=== PATIENT | male | born 1960 | race Caucasian/White ===

== ENCOUNTER 2018-12-03 19:19 | Inpatient (IN) | payer OTHER ==
[~2018-12-03] VITALS: Ht 175.3 cm; Wt 109.8 kg
--- NOTE | ~2018-12-03 | H ---
[facility] [place] [address] [place] [address] HISTORY AND PHYSICAL Name: GREG WHITING Room #: 360-P ADM IN M.R.#: [id number] Admission: 12/03/18 ������������������ Attend Phys: Himanshu Bonilla MD Discharge: ������������������ Date of : 60 Report #: [id number] THIS REPORT FOR: //name// CC: John Bonilla DATE OF SERVICE: 12/03/2018 ATTENDING PHYSICIAN: Dr. Himanshu Bonilla. PRIMARY CARE PHYSICIAN: None. CHIEF COMPLAINT: Right eye vision loss. HISTORY OF PRESENT ILLNESS: The patient is a 58-year-old male who was watching TV around 1:00 a.m. this morning when he suddenly could not see out of his right eye in the peripheral field. He said everything he looked at, he could only see half of everything. This persisted for a while, where there was a blue spot in the middle of his vision where there was no vision. He did not ever have total loss of vision. He ended up going to bed and woke up around 11:30 in the morning and the blue spot was still there. Eventually, this has turned into a general haziness or "kaleidoscope effect" in the right eye peripheral vision. He has never had any symptoms like this before. Denies any associated headache, dizziness or eye pain. Denies any weakness, numbness or tingling in any extremities. He is a diabetic and has hypertension, but he has been off of his medications for at least 6 months since his nurse practitioner, he was seeing, left the practice. He has not gotten a new provider yet. He was initially seen at [facility] for evaluation and CT showed a subacute infarct, so he was sent here for further neurologic evaluation. He is currently resting comfortably, in no acute distress. He continues to have some haziness of the right eye peripheral field. PAST MEDICAL HISTORY: Depression, hypertension, diabetes. PAST SURGICAL HISTORY: Sinus surgery with benign tumor removal. ALLERGIES: None. HOME MEDICATIONS: None in the last 6 months. He is supposed to be taking atenolol, Norvasc and Zestril, but he does not know the doses. PAST MEDICAL HISTORY: The patient smokes 1-1/2 to 2 packs of cigarettes per day. He has been smoking for at least 40 years. Denies any alcohol or drug use. He lives alone. FAMILY HISTORY: His father had multiple TIAs as well as hypertension, COPD, [facility] [address] [place] [address] HISTORY AND PHYSICAL Name: GREG WHITING Room #: 360-P [facility] IN [facility].#: [id number] Admission: 12/03/18 ������������������ Attend Phys: Himanshu Bonilla MD Discharge: ������������������ Date of : 60 Report #: [id number] carotid disease and prostate cancer. His mother had hypertension and peripheral vascular disease. He thinks she had to have a stent in her leg. Both his grandparents had strokes as well and he also has an uncle with heart disease at a young age. REVIEW OF SYSTEMS: Twelve-point review of systems was reviewed with the patient, otherwise negative unless stated in the HPI. PHYSICAL EXAMINATION: GENERAL: The patient is an alert male in no acute distress. VITAL SIGNS: Temperature was 36.8, heart rate 82, respirations 20, blood pressure /87, oxygen 95% on room air. HEENT: PERRLA. Sclerae nonicteric. Oral mucosa is pink and moist. NECK: Supple, no JVD noted. CARDIAC: Normal S1, S2. No murmurs, rubs or gallops. RESPIRATORY: Breath sounds are clear bilaterally. No wheezing or rhonchi. Breathing is nonlabored. His breath smells like cigarettes. ABDOMEN: Round, soft, nontender, nondistended with positive bowel sounds. VASCULAR: No peripheral edema noted. Pedal pulses are 2+. No calf tenderness. NEUROLOGIC: The patient is alert and oriented x 3. Speech is clear. No facial droop or asymmetry. EOMs are intact bilaterally. He does have decreased vision in the right eye peripherally with vision testing, but he is able to tell me how many fingers I am holding up when he covers the right eye. Muscle strength is 5/5 in all 4 extremities. Sensation is intact in all 4 extremities. SKIN: Intact. No rashes or lesions. LABORATORY DATA AND DIAGNOSTICS: Blood work done at [place] showed a WBC of 10.07, hemoglobin 15.6, platelets 348. Sodium 140, potassium 4.4, BUN 19, creatinine 1.12, glucose is 99, magnesium 2.2. LFTs are within normal limits. CK 57. CRP negative. Troponin is 0.02. Alcohol level negative. BNP 81. INR 0.9. CT of the head showed a left parietal lobe infarct, which is subacute. There are also chronic right thalamic and right frontal infarcts. EKG showed a sinus rhythm with an old inferior infarct. ASSESSMENT AND PLAN: 1. Right eye vision loss. CT is showing a subacute cerebrovascular accident as well as old infarcts. The patient was not aware of any prior strokes. He does have multiple vascular risk factors. We will further evaluate with an MRI and MRA of the head in the morning. Start aspirin daily. Neurology is consulted. Check ultrasound of carotids and echocardiogram. 2. Hypertension. The patient has been off his blood pressure medications for about 6 months. We will clarify those medications, but hold off on starting them to allow for permissive hypertension in the setting of a new stroke. Blood pressure currently is stable. 3. Diabetes type 2. Check hemoglobin A1c. He is not on any current medication. We will add sliding scale insulin with Accu-Cheks. [facility] [place] [address] HISTORY AND PHYSICAL Name: GREG WHITING Room #: 360-P ADM IN .R.#: [id number] Admission: 12/03/18 ������������������ Attend Phys: Himanshu Bonilla MD Discharge: ������������������ Date of : 60 Report #: [id number] 4. Tobacco abuse. The patient has been advised to quit. Denies any underlying lung disease. He does request a nicotine patch. 5. Old cerebrovascular accident per CT. The patient was unaware of prior strokes. We will add aspirin daily. 6. Deep venous thrombosis prophylaxis, place sequential compression devices. We will continue to follow the patient closely throughout the hospitalization and make changes based on clinical status. ��������������������������������������������� ���������������������������������������� By: ��������������������������������������������� [id number] MAGNOLIA Crain /nt
[2018-12-03] MEDS ORDERED: ZYRTEC10 M5 PO (21:43)
[2018-12-03 21:44] VITALS: BP 167/87
[2018-12-04 00:04] VITALS: BP 144/76
[2018-12-04 05:07] VITALS: BP 128/85
--- NOTE | 2018-12-04 05:32 | NUR ---
PT ARRIVED FROM [facility] DIRECT ADMIT. ARRIVED ON CART VIA EMS. PLACED IN ROOM 360. ADMISSION ASSESSMENTS COMPLETE. NIH COMPLETED. PT REPORTING ABDNORMAL VISION TO HIS RIGHT EYE, LATERALLY. HE STATES THAT WHEN HE LOOKS AT THE TELEVISION, THE FAR RIGHT IS DISTORTED AND JUST WEIRD. NO OTHER SX NOTED OR REPORTED. PT GAIT STEADY.
[2018-12-04 07:23] VITALS: BP 138/89
[2018-12-04 08:45] LABS: FOLIC ACID 13.9 ng/mL (8.6-58.9)
[2018-12-04 12:12] VITALS: BP 158/81
[2018-12-04] MEDS ORDERED: NORVASC5 MG PO (13:58)
[2018-12-04] MEDS ORDERED: TENORMIN50 MG PO (13:59)
--- NOTE | 2018-12-04 15:36 | 2DMMODE ---
[facility] [place] [place] [address] 2 D/M-MODE ECHOCARDIOGRAM Name: GREG WHITING Room #: 360-P ADM IN M.R.#: [id number] ������������� Admission: 12/03/18 ������������� Attend Phys: Himanshu Bonilla MD Discharge: ��� ������������� ��� Date of : 60 Date of Service: 12/04/18 1536 �� Report #: [id number] �������� ��������������������������������������������[id number] THIS REPORT FOR: //name// APPROVED REPORT Study performed: 12/04/2018 10:47:58 EXAM: Comprehensive 2D, Doppler, and color-flow Echocardiogram Patient Location: Bedside Room #: 360 Status: routine BSA: 2.24 HR: 81 bpm BP: 138/89 mmHg Rhythm: NSR Other Information Study Quality: Adequate Indications Hx. CVA, smoker, HTN Echo Enhancing Agent Indication: Rule out Shunt Agent(s) / Amount(s) Used: Agitated Saline 7 cc 2D Dimensions IVSd: 15.36 (7-11mm) LVOT Diam: 25.25 (18-24mm) LVDd: 48.75 mm PWd: 12.36 (7-11mm) Ascending Ao: 34.10 (22-36mm) LVDs: 38.86 (25-40mm) Aortic Root: 40.35 mm IVC: 17.00 mm Volumes Left Atrial Volume (Systole) Single Plane 4CH: 24.59 mL Single Plane 2CH: 21.81 mL LA ESV Index: 10.75 mL/m2 Aortic Valve AoV Peak Lokesh.: 1.45 m/s AO Peak Gr.: 8.39 mmHg LVOT Max P.35 mmHg LVOT Max V: 1.16 m/s JOÃO Vmax: 3.99 cm2 Mitral Valve [facility] [place] [address] [place] [address] 2 D/M-MODE ECHOCARDIOGRAM Name: GREG WHITING Cesar Room #: 360-[facility] IN ..#: [id number] ������������� Admission: 12/03/18 ������������� Attend Phys: Himanshu Bonilla MD Discharge: ��� ������������� ��� Date of : 60 Date of Service: 12/04/18 1536 �� Report #: [id number] �������� ��������������������������������������������[id number] E/A Ratio: 0.7 MV Decel. Time: 272.59 ms MV E Max Lokesh.: 0.65 m/s MV A Lokesh.: 0.90 m/s MV PHT: 79.05 ms IVRT: 124.57 ms Pulmonary Valve PV Peak Lokesh.: 1.34 m/s PV Peak Gr.: 7.32 mmHg Pulmonary Vein P Vein S: 0.37 m/s P Vein A: 0.34 m/s P Vein D: 0.21 m/s P Vein A Dur.: 173.0 msec P Vein S/D Ratio: 1.76 Tricuspid Valve RAP Estimate: 5.00 mmHg Left Ventricle The left ventricle is normal size. Mild concentric left ventricular hypertrophy. The left ventricular systolic function is normal. The left ventricular ejection fraction is within the normal range. LVEF is 55-60%. Mild diastolic dysfunction is present (impaired relaxation pattern). Right Ventricle The right ventricle is normal size. The right ventricular systolic function is normal. Atria The left atrium size is normal. No shunting by contrast bubble injection. The right atrium size is normal. Aortic Valve The aortic valve is normal in structure, trileaflet. No aortic regurgitation is present. There is no aortic valvular stenosis. Mitral Valve The mitral valve is normal in structure. There is no mitral valve regurgitation noted. No evidence of mitral valve stenosis. Tricuspid Valve Tricuspid valve is not well visualized. There is no tricuspid valve regurgitation noted. [place] [address] 2 D/M-MODE ECHOCARDIOGRAM Name: JOHANNEGREG Room #: 360-P [facility] IN .R.#: [id number] ������������� Admission: 12/03/18 ������������� Attend Phys: Himanshu Bonilla MD Discharge: ��� ������������� ��� Date of : 60 Date of Service: 12/04/18 1536 �� Report #: [id number] �������� ��������������������������������������������[id number] Pulmonic Valve Pulmonic valve is not well visualized. There is no pulmonic valvular regurgitation. Great Vessels Aortic root is dilated measuring 4 cm. The ascending aorta is normal in size. IVC is normal in size and collapses >50% with inspiration. Pericardium There is no pericardial effusion. <Conclusion> The left ventricle is normal size. Mild concentric left ventricular hypertrophy. The left ventricular systolic function is normal. The left ventricular ejection fraction is within the normal range. LVEF is 55-60%. The right ventricle is normal size. The left atrium size is normal. The right atrium size is normal. The aortic valve is normal in structure, trileaflet. No aortic regurgitation is present. There is no aortic valvular stenosis. The mitral valve is normal in structure. Tricuspid valve is not well visualized. There is no tricuspid valve regurgitation noted. Unable to assess PA pressure. There is no pericardial effusion. No shunting by contrast bubble injection. ��������������������������������������������� <ELECTRONICALLY SIGNED> ���������������������������������������� By: Don Roberson MD ��������������������������������������������� 12/04/18 1536 1536 [id number] Don Roberson MD /INF
--- NOTE | 2018-12-04 17:55 | NUR ---
PT IS HAVING WORKUP FOR CVA TODAY...REPORTS HE HAS BEEN OFF BP MEDS SINCE APR 2018...ALSO ADVISED PATIENT TO QUIT SMOKING...NICOTENE PATCH IN PLACE...
[2018-12-04 19:35] VITALS: BP 150/91
[2018-12-04 23:35] VITALS: BP 147/83
[2018-12-05 03:09] LABS: GLYCOHEMOGLOBIN (HGB A1C) 6.1 % (4.8-5.6)
[2018-12-05 04:10] VITALS: BP 130/77
[2018-12-05 04:23] LABS: ABSOLUTE NEUTROPHILS 4.4 thou/uL (1.4-8.2); BASOPHILS 0.6 % (0.0-2.0); EOSINOPHILS 3.8 % (0.0-3.0); HEMATOCRIT 44.6 % (42.0-52.0); HEMOGLOBIN 14.7 gm/dL (14.0-18.0); LYMPHOCYTES 35.2 % (24.0-44.0); MCH 28.4 pg (26.0-34.0); MCHC 33.1 g/dL (28.0-37.0); MCV 85.8 fL (80.0-100.0); MONOCYTES 10.5 % (1.0-8.0); PLATELET COUNT 311 thou/uL (150-400); POLYS 49.9 % (36.0-66.0); RBC 5.19 mil/uL (4.50-6.00); RDW 15.3 % (10.5-14.5); WBC 8.8 thou/uL (4.0-11.0)
[2018-12-05 04:33] LABS: CALCIUM 9.2 mg/dL (8.5-10.1)
--- NOTE | 2018-12-05 04:51 | NUR ---
At HS , pt. verbalized he's craving for cigarette. Nicotine patch changed as scheduled. No change in neuro assessment. Up ad ana maria in room with steady gait. BP stable. Making progress towards care plan goals.
[2018-12-05 04:55] LABS: CHOLESTEROL 202 mg/dL (<200); HDL CHOLESTEROL 42 mg/dL (>40); LDL CHOLESTEROL 132 mg/dL (<100); SERUM ASSESSMENT Clear; TC:HDL 4.8 Ratio (Not establshd); TRIGLYCERIDE 141 mg/dL (<150); VLDL 28 mg/dL (<40)
[2018-12-05 08:08] VITALS: BP 144/99
--- NOTE | 2018-12-05 09:26 | HC ---
[facility] [place] [address] [address] [place] [address] CONSULTATION Name: GREG WHITING Cesar Room #: 360-P ADM IN M.R.#: [id number] Admission: 12/03/18 ������������������ Attend Phys: Himanshu Bonilla MD Discharge: ������������������ Date of : 60 Report #: [id number] THIS REPORT FOR: //name// CC: John Bonilla HISTORY OF PRESENT ILLNESS: The patient is a 58-year-old male who presents with difficulty with vision. The patient was watching TV yesterday when he realized that he could only see half of the remote, he was missing the piece off to the right. When he then went to look at the television, the right side of the television was gone. This then turned into a kaleidoscope effect, which seems to be from the right eye only and off to the periphery or right side of his vision. The patient states he has never had anything like this before. However, he has had headaches and in fact has a headache between his eyes today. When this occurred the patient decided to go to the Emergency Room at [facility]. A subacute or chronic infarct was seen in the left parietal lobe and the patient was transferred to [facility]. PAST MEDICAL HISTORY: Stroke, hypertension, tobacco use, environmental allergies. PAST SURGICAL HISTORY: Sinus surgery. MEDICATIONS AT HOME: Cetirizine 10 mg daily. ALLERGIES: None. VITAL SIGNS: Temperature is 36.9, pulse rate 77, respiratory rate 15, blood pressure 138/89, bedside pulse oximetry 96% on room air. LABORATORY DATA: Glucose 106, B12 227. Folate 13.9, hemoglobin A1c pending. IMAGING STUDIES: CT scan of the head, the results are in the chart and read as a subacute to chronic left parietal lobe infarct. This morning, the patient has had a carotid ultrasound and this demonstrates mild plaque. NEUROLOGIC: Cranial nerves 2-12 are grossly intact with the exception of his vision. He has a kaleidoscope effect only from the right eye. This occurs in the outer visual field of the right eye. There is no obvious change in his vision from the left eye. Motor exam demonstrates symmetrical strength in all 4 extremities with tone and bulk normal. Coordination reveals intact [id number]. Gait was not tested. IMPRESSION AND PLAN: I have asked the nurse to call Radiology to see if the MRI of the head can be done today. The patient has a left parietal infarct but it would only cause a loss of vision from one quadrant of the visual field, [place] [address] CONSULTATION Name: GREG WHITING Room #: 360-P [facility] IN [facility].#: [id number] Admission: 12/03/18 ������������������ Attend Phys: Himanshu Bonilla MD Discharge: ������������������ Date of : 60 Report #: [id number]. In addition, he should have symptoms from both eye not just the right eye. The kaleidoscope effect is not a typical symptom for stroke. Hopefully, the MRI will confirm a left occipital stroke. The patient has also had some lab work done here and his B12 is 227. If it has not been ordered, I will go ahead and order B12 injections for the patient. I thank you for your kind referral of the patient off and will continue to follow him with you. ��������������������������������������������� <ELECTRONICALLY SIGNED> ���������������������������������������� By: Ginette Juares DO ��������������������������������������������� 12/05/18 0926 [id number] Ginette Juares DO /nt
[2018-12-05 12:07] VITALS: BP 152/88
[2018-12-05 16:28] VITALS: BP 134/92
[2018-12-05 19:08] VITALS: BP 147/95
--- NOTE | 2018-12-05 20:09 | NUR ---
SPOKE WITH PATIENT REGARDING THE IMPORTANCE OF SMOKING CESSATION...NICOTENE PATCH IN PLACE
[2018-12-06 04:01] VITALS: BP 135/87
--- NOTE | 2018-12-06 04:59 | NUR ---
No acute changes this shift. ALOx4 and very pleasant. Patient given new nicotene patch. Scheduled toradol given per orders. Smoking cessation conversation at beginning of shift. Patient says he is struggling with not smoking but patch is helping. Medications explained before administration as patient only knew what the nicotene patch was. Progress toward plan of care at this time.
[2018-12-06 07:35] VITALS: BP 145/99
[2018-12-06 11:53] VITALS: BP 145/86
[2018-12-06] MEDS ORDERED: ATORVASTATIN CA10 MG PO (12:22)
[2018-12-06] MEDS ORDERED: NICOTINE TRANSD21 M1 TRANSDERM (12:22)
[2018-12-06] MEDS ORDERED: ASA5UEC PO (12:22)
[2018-12-06 12:36] VITALS: BP 145/86
[2018-12-06 12:58] VITALS: BP 145/86
[2018-12-06 13:22] VITALS: BP 145/86
--- NOTE | 2018-12-06 13:55 | NUR ---
PT DISCHARGE INSTRUCTIONS GIVEN..RX WITH MEDICATION GIVEN...SMOKING CESSATION AND HEART HEALTHY DIET REVIEWED...
== END 2018-12-06 14:07 | disposition home or self-care (01) | DRG 66 ==
LOC: 3W 19:19 → ENTRNSPT 12-06 13:54 → EDTRNSPTSTS 12-06 13:57 → 3W 12-06 14:07
PROVIDERS: Nurse Practitioner Acute Care; Psychiatry & Neurology Neuromuscular Medicine; ADMIT Family Medicine
DX: I63.9 Cerebral infarction, unspecified (principal); F17.200 Nicotine dependence, unspecified, uncomplicated; I10 Essential (primary) hypertension; H54.61 Unqualified visual loss, right eye, normal vision left eye; E11.9 Type 2 diabetes mellitus without complications; F32.9 Major depressive disorder, single episode, unspecified; Z91.19 Patient's noncompliance with other medical treatment and regimen; Z79.899 Other long term (current) drug therapy; Z71.6 Tobacco abuse counseling
CPT/HCPCS: 10779; 10879